=== PATIENT | female | born 1990 | race African-American/Black ===

== ENCOUNTER 2017-08-21 20:08 | Emergency (ER) | payer MEDICAID ==
[~2017-08-21] VITALS: Ht 167.6 cm; Wt 73.7 kg
[2017-08-21 20:13] VITALS: BP 119/76
== END 2017-08-21 21:07 | disposition home or self-care (01) ==
LOC: ED 20:52
DX: T19.2XXA Foreign body in vulva and vagina, initial encounter (principal); X58.XXXA Exposure to other specified factors, initial encounter; Y93.89 Activity, other specified; Y92.89 Other specified places as the place of occurrence of the external cause; Y99.8 Other external cause status
CPT/HCPCS: 99284